=== PATIENT | male | born 1995 | race Caucasian/White ===

== ENCOUNTER 2019-07-16 06:10 | Emergency (ER) | payer BC ==
[~2019-07-16] VITALS: Ht 177.8 cm; Wt 95.2 kg
[2019-07-16 07:40] LABS: Calcium, Ionized (POC) 1.21 mmol/L (1.10-1.46); Chloride (POC) 106 mmol/L (98-108); Creatinine (POC) 0.9 mg/dL (0.8-1.3); Glucose (ISTAT POC) 103 mg/dL (70-99); Sodium (POC) 139 mmol/L (135-148); Total CO2 (POC) 24 mmol/L (21-32)
== END 2019-07-16 08:42 | disposition home or self-care (01) ==
LOC: ER 06:10
PROVIDERS: Emergency Medicine
DX: R00.2 Palpitations (principal); I10 Essential (primary) hypertension
CPT/HCPCS: 80047; 85014; 93005; 93010; 99283-25